=== PATIENT | female | born 1985 | race Caucasian/White ===

== ENCOUNTER 2022-03-29 17:31 | Emergency (ER) | payer MEDICAID, SELFPAY ==
[2022-03-29 17:49] VITALS: BP 135/101; PULSE 78; RESP 14; TEMP 37; O2SAT 99; BMI 34.3
--- NOTE | 2022-03-29 18:03 | XRR_ITS ---
PROCEDURE INFORMATION: Exam: XR Left Wrist Exam date and time: 03/29/2022 6:25 PM Age: 36 years old Clinical indication: Pain; Wrist; Left; Additional info: Fall injury with wrist pain TECHNIQUE: Imaging protocol: Radiologic exam of the Left wrist. Views: 3 or more views. COMPARISON: No relevant prior studies available. FINDINGS: Bones/joints: Normal. Soft tissues: Normal. XR/XR wrist LT min 3V* [id number] IMPRESSION: No acute findings.
--- NOTE | 2022-03-29 18:14 | W.ED.EXTPRO ---
HPI - Extremity Problem General: Chief complaint: Extremity Injury, Upper Stated complaint: left hand injury Time Seen by Provider: 03/29/22 18:03 History of Present Illness: Patient is a 36-year-old female comes to the ED with left hand and wrist injury. Injury occurred just prior to arrival. She was trying to get one of her kids loaded up in her van. When she went to step out of the van she fell landing on left hand and wrist. She now has some pain and swelling around the thenar region of hand. She rates the pain an 8 out of 10. Associated symptoms: Deny chest pain, fever(s) or rash Review of Systems Const: Denies: fever(s), chills or fatigue Eyes: Denies: change in vision or eye discomfort ENMT: Denies: throat pain, odynophagia, nasal discharge or nasal congestion Card: Denies: chest pain, palpitations, edema, swelling of feet/ankles, dyspnea on exertion or orthopnea Resp: Denies: dyspnea, productive cough or non-productive cough GI: Denies: abdominal pain, nausea, vomiting, diarrhea, constipation or hematochezia : Denies: flank pain, dysuria or hematuria Musc: Reports: extremity pain (left wrist); Denies: neck pain, back pain or extremity swelling Skin/Breast: Denies: rash or new lesions Neuro: Denies: headache(s), numbness in extremities or weakness in extremities PFS ED PFSH: Medical History (Updated 03/29/22 @ 22:53 by NIGEL Lofton) No pertinent family history Surgical History (Updated 03/29/22 @ 22:53 by NIGEL Lofton) No pertinent past surgical history Physical Exam Const: COMMON NORMALS: patient oriented x3 HENMT: COMMON NORMALS: normocephalic HEAD & SCALP: normocephalic MOUTH: Normal oral and palatal mucosa present THROAT: posterior oropharynx normal and uvula midline Neck/C-Spine: COMMON NORMALS: supple GENERAL: Yes normal visual inspection Resp: COMMON NORMALS: normal respiratory effort, No retractions, No use of accessory muscles and clear to auscultation bilaterally AUSCULTATION: clear to auscultation bilaterally Cardio: COMMON NORMALS: regular rate, regular rhythm, S1 normal heart sound present, S2 normal heart sound present, No gallops present (Cardio), No clicks present (Cardio), No murmurs present (Cardio) and Peripheral pulses 2+ throughout RATE: regular rate RHYTHM: regular rhythm HEART SOUNDS: S1 normal heart sound present and S2 normal heart sound present PERIPHERAL PULSES: Peripheral pulses 2+ throughout GI: COMMON NORMALS: Normal to inspection, nondistended, normoactive bowel sounds present, Soft to palpation, non-tender and no masses PALPATION: Yes Soft to palpation : COMMON NORMALS: Yes no CVA tenderness BLADDER/KIDNEY EXAM: Yes no CVA tenderness Back/Pelvis: COMMON NORMALS: no CVA tenderness Extremity: NARRATIVE EXTREMITY EXAM: Left hand?ecchymosis and swelling noted around thenar region of hand. Tenderness to palpation of the thenar region of hand. Neurovascular tact distally. Neuro: COMMON NORMALS: patient oriented x3 GAIT: Yes Normal gait present Skin: GENERAL SKIN EXAM: dry skin Course Vital Signs: Vital signs: Vital Signs Temperature 98.6 F 03/29/22 17:49 Pulse Rate 78 03/29/22 17:49 Respiratory Rate 14 03/29/22 17:49 Blood Pressure 135/101 03/29/22 17:49 Pulse Oximetry 99 03/29/22 17:49 Oxygen Delivery Me thod 03/29/22 17:49 MDM - Extremity (Nontraumatic) Medical Decision Making Patient is a 36-year-old female comes to the ED with left hand and wrist injury. Injury occurred just prior to arrival. She was trying to get one of her kids loaded up in her van. When she went to step out of the van she fell landing on left hand and wrist.Left hand?ecchymosis and swelling noted around thenar region of hand. Tenderness to palpation of the thenar region of hand. Neurovascular tact distally. Vital stable. Left wrist x-ray showed no acute findings or fractures. Patient diagnosed with a contusion of left hand and was given a dose of Toradol here in the ED. She was discharged home with a prescription for ibuprofen 800 mg for pain. Return ED precautions given. Follow-up with PCP within the next week for reevaluation. Patient understood and agreed with plan for Lab Data Radiology Impressions Wrist X-Ray 03/29/22 18:03 IMPRESSION: No acute findings. Discharge Plan Discharge Patient Disposition: Home Clinical Impression: Contusion of hand, left Qualifiers: Encounter type: initial encounter Qualified Code(s): S60.222A - Contusion of left hand, initial encounter Condition: Stable Prescriptions: New ibuprofen 800 mg tablet 800 mg PO Q8H PRN (Reason: pain) Qty: 30 0RF Discharge Orders: Discharge ED (Routine); Ordered 03/29/22 Ordered By: Darrel Ryan Discharge Diet: Regular Discharge Activity: Increase activity as tolerated Activity Restrictions/Additional Instructions: Follow-up with medical provider as directed in the next 5-7 days for reevaluation. Take medications as prescribed. Return to the ER or your medical provider if condition worsens. Please read and understand discharge instructions. Thank you for choosing [facility] for your healthcare needs today. Please realize this is an emergency room and that we are providing you with a medical screening exam and this may not be complete and all inclusive of all the testing and or work up that you may need to determine your ailment or severity of your illness. It is very important that you follow up as instructed or that you return to the Emergency Department should you have concerns or if your condition changes or worsens in any way. Coding Level of Care Code ED Journal Clerk for Leonie Werner Exam Comprehensive
[2022-03-29] MEDS: ketorolac 60 mg/2 mL INJ IM (18:52)
== END 2022-03-29 19:20 | disposition home or self-care (01) ==
PROVIDERS: Emergency Provider Physician Assistant
DX: S60.222A Contusion of left hand, initial encounter (principal); W17.89XA Other fall from one level to another, initial encounter
CPT/HCPCS: 73110; 96372; 99284; J1885

== ENCOUNTER → 2023-03-09 14:02 | Outpatient (BNVA) | payer MEDICAID, SELFPAY | PROVIDERS: Visit Provider Family Medicine | DX: G56.03 Carpal tunnel syndrome, bilateral upper limbs (principal); E03.9 Hypothyroidism, unspecified | CPT/HCPCS: 80053; 80061; 84439; 84443; 85025 ==

== ENCOUNTER 2023-05-25 10:20 | Outpatient (CLI) | payer OTHER, MEDICAID, SELFPAY ==
--- NOTE | 2023-05-25 10:29 | XRR_ITS ---
PROCEDURE INFORMATION: Exam: XR Lumbosacral Spine Exam date and time: 05/25/2023 10:35 AM Age: 37 years old Clinical indication: Dorslagia; Patient HX: Dorsalgia; Chronic low back pain; PT states she has had 5 epidurals (labor) and thinks this has somet; Additional info: M54.9 - dorsalgia, unspecified TECHNIQUE: Imaging protocol: Radiologic exam of the lumbosacral spine. Views: 4 or 5 views. COMPARISON: No relevant prior studies available. FINDINGS: Bones/joints: Mild L3-L4 and marked L4-L5 disc space narrowing with eburnation. Mild anterior spurring. No fracture. No lytic or sclerotic bone lesion. The pedicles are intact.. Soft tissues: Unremarkable. XR/XR lumbar spine min 4V [id number] IMPRESSION: No acute findings.
== END 2023-05-25 10:21 | disposition home or self-care (01) ==
LOC: RAD 10:21
PROVIDERS: PCP Family Medicine; Visit Provider Anesthesiology Pain Medicine
DX: M54.50 Low back pain, unspecified (principal); G89.29 Other chronic pain
CPT/HCPCS: 72110

== ENCOUNTER → 2023-06-01 12:01 | Outpatient (BNVA) | payer MEDICAID, SELFPAY | PROVIDERS: PCP Family Medicine; Visit Provider Family Medicine | DX: E03.9 Hypothyroidism, unspecified (principal) | CPT/HCPCS: 80048; 84439; 84443 ==

== ENCOUNTER → 2023-07-17 13:28 | Outpatient (BNVA) | payer MEDICAID, SELFPAY | PROVIDERS: PCP Family Medicine; Visit Provider Student in an Organized Health Care Education/Training Program | DX: G56.03 Carpal tunnel syndrome, bilateral upper limbs (principal) | CPT/HCPCS: 73130 ==

== ENCOUNTER 2023-10-10 05:46 | Day surgery (SDC) | payer MEDICAID, SELFPAY ==
[2023-10-10] VITALS (8 sets, daily range): BP systolic 119–162; BP diastolic 79–117; PULSE 64–87; RESP 16–20; TEMP 36.1–36.4; O2SAT 94–98; BMI 29.7
[2023-10-10 06:17] LABS: OR HCG Qualitative Urine Negative (Negative)
[2023-10-10] MEDS: scopolamine 1.5 Patch 1 PATCH TRANSDERMA (06:29)
[2023-10-10] MEDS: acetaminophen 1,000 MG/100 ML PIGGYBACK 400 MG IV (06:33)
[2023-10-10] MEDS: ketorolac 30 mg/mL INJ IVP (06:34)
[2023-10-10] MEDS: sodium chloride 0.9% 1,000 ML 30 ML IV (06:35)
--- NOTE | 2023-10-10 06:40 | ANES.PREANE2 ---
Pre-Anesthetic Assessment Height/Weight: Height 1.63 m Weight 78.471 kg Temp Pulse Resp BP Pulse Ox O2 Del Method 97.3 F L 87 16 159/117 98 Room Air 10/10/23 06:08 10/10/23 06:08 10/10/23 06:08 10/10/23 06:08 10/10/23 06:08 10/10/23 06:08 Operation Date: 10/10/23 07:00 Proposed Procedures p Carpal Tunnel Release(Left) - Azeem Ryan DO Familial anesthetic complications: None Was Beta Kinza taken within 24 hours: N/A Was Clonidine taken within 24 hours: N/A Last intake: Intake Last Liquid Date 10/09/23 Last Liquid Time 23:30 Last Solid Date 10/09/23 Last Solid Time 21:00 Social Tobacco and No alcohol Exam alert, oriented x 3, clear to auscultation bilaterally and regular rate & rhythm Airway Mallampati: Class II Dentition: other (missing) Chronic Renal Insufficiency (dehydration) Metabolic Thyroid Disease Anesthetic Plan ASA status: 2 Anesthesia: MAC Risk of > 500 ml blood loss (7ml/kg in children): No Medications/Allergies Home Medications Medication Instructions Recorded Confirmed Last Taken Type levothyroxine 200 mcg tablet 250 mcg PO DAILY 10/09/23 10/10/23 10/10/23 History (Synthroid) Allergies Allergy/AdvReac Type Severity Reaction Status Date / Time No Known Allergies Allergy Verified 10/10/23 06:39 Current Medications Generic Name Dose Route Start Last Admin Trade Name Freq PRN Reason Stop Dose Admin Sodium Chloride 1,000 mls @ 30 mls/hr 10/10/23 06:00 10/10/23 06:35 Sodium Chloride 0.9% IV 10/11/23 05:59 30 mls/hr .Q24H GERARDO Administration PFSH Anesthesia Medical History Moderate major depression Hypothyroidism No pertinent family history Surgical History No pertinent past surgical history Family History Mother Diabetes Stroke Father Hypertension Social History Smoking and tobacco/nicotine status: current every day tobacco/nicotine user cigarettes Packs smoked per day: 1 Quit status (tobacco/nicotine): considering quitting Second hand smoke exposure: Yes Alcohol intake: never Substance/Drug Use: never Data Anesthesia Cardiac Studies: No Data to Display
--- NOTE | 2023-10-10 06:48 | W.PM.OPSFHP ---
Same Day Surgery H&P Indication for Procedure/HPI DATE OF PROCEDURE: October 10, 2023 CHIEF COMPLAINT/INDICATIONFOR SURGICAL PROCEDURE: Left carpal tunnel syndrome PREOP DIAGNOSIS: Left carpal tunnel syndrome PLANNED PROCEDURE: Operation Date: 10/10/23 07:00 Proposed Procedures p Carpal Tunnel Release(Left) - Azeem Ryan DO Medications/Allergies* Home Medications Medication Instructions Recorded Confirmed Type levothyroxine 200 mcg tablet 250 mcg PO DAILY 10/09/23 10/10/23 History (Synthroid) Allergies/Adverse Reactions Allergy/AdvReac Type Severity Reaction Status Date / Time No Known Allergies Allergy Verified 10/10/23 06:39 Current Medications: Generic Name Dose Route Start Last Admin Trade Name Freq PRN Reason Stop Dose Admin Sodium Chloride 1,000 mls @ 30 mls/hr 10/10/23 06:00 10/10/23 06:35 Sodium Chloride 0.9% IV 10/11/23 05:59 30 mls/hr .Q24H GERARDO Administration Pertinent History/Comorbid Conditions* Medical History (Updated 06/01/23 @ 12:04 by Eric Melton MD) Moderate major depression Hypothyroidism No pertinent family history Surgical History (Updated 03/29/22 @ 22:53 by NIGEL Lofton) No pertinent past surgical history Family History (Updated 03/09/23 @ 13:22 by Freda Martell) Diabetes Mother Hypertension Father Stroke Mother Social History Smoking and tobacco/nicotine status: current every day tobacco/nicotine user cigarettes Packs smoked per day: 1 Quit status (tobacco/nicotine): considering quitting Second hand smoke exposure: Yes Alcohol intake: never Substance/Drug Use: never Pertinent Exam Findings alert, oriented x 3, operative site marked and procedure specific exam findings Please refer to previous office note on 09/04/2023 for detailed orthopedic examination. Bilateral upper extremity exam normal C-spine ROM No pain. Negative Spurlings Negative Tinel's@ shoulder. Normal ROM Normal ROM elbow. Negative Tinel's@ elbow Right, positive on the left Wrist: Positive median compression test. Bilaterally Positive Tinel's on left Positive Tinel's on right. Positive Phalens bilaterally. Mild thenar weakness bilaterally. No atrophy noted. No Intrinsic atrophy noted bilaterally. No CMC TTP Bilaterally. Negative Grind test. Recommendations Surgery/Procedure today Other Plans: Plan to proceed with the OR today for left carpal tunnel release.. Patient understands incidence procedure risk benefits complication alternatives of surgery and tissue excision being less proceed with surgical intervention today all questions answered. Coding Level of Care Code Acute Code for Chg Fwd
[2023-10-10] MEDS: ceFAZolin 2,000 MG in sodium chloride 0.9% (plus) 50 ML 100 MG IV (06:58)
[2023-10-10] MEDS: ROPivacaine 0.5% SDV 30 mL 150 MG INJECTION (07:11)
[2023-10-10] MEDS: lidocaine-epi 1% PF 1:200,000 30 mL SDV INJECTION (07:11)
--- NOTE | 2023-10-10 07:37 | P.BOP_ITS ---
Date of Procedure: 10/10/2023 Surgeon: Azeem Ryan DO Bar Finish Operator(s): Darrel Ryan PA-C Procedure(s) performed: Left carpal tunnel release Findings of the procedure(s): Patient found to have left carpal tunnel syndrome underwent procedure as planned without issues or complications Estimated blood loss: 2 mL Specimen(s) removed: None Post-operative diagnosis: Left carpal tunnel syndrome
--- NOTE | 2023-10-10 07:41 | P.OP_ITS ---
Operative Report Date of procedure: October 10, 2023 Surgeon: Azeem Ryan DO User Experience Manager: Darrel Ryan PA-C: PA was necessary for assistance in this case with hand positioning to execute the procedure, retraction and protection of neurovascular structures as well as to assist with wound closure and dressing application. Procedure: Preoperative diagnosis: Left carpal tunnel syndrome post-op diagnosis: Same Procedure done: 1.?Left carpal tunnel release Surgeon: Azeem Ryan DO Anesthesia: MAC (Local) Estimated blood?loss: 2 mL Tourniquet time 5 minutes IV fluids: See anesthesia record Complications: None Findings: See operative report narrative Condition: stable Disposition: same day Brief History: Patient is a pleasant 38 year-old female?with?left carpal tunnel syndrome.? Patient has been worked up in the outpatient setting findings and physical examination consistent with this.? Patient nerve?conduction studies consistent with carpal tunnel syndrome.? We detailed?out?patient's risk benefits complication alternatives with surgical and?nonsurgical treatment options. Through shared decision making, patient?agrees to proceed with surgical intervention of the?left carpal tunnel release .? Patient understands and agrees with current plan.? All questions answered.? Patient elects to proceed with surgical intervention with carpal tunnel release. Procedure: Patient seen and evaluated in the preoperative holding area.? Consent was reviewed and signed with patient.? Correct extremity was marked.? Patient was seen evaluated by the anesthesia department once cleared for surgery was brought back to the operative suite.? Patient was kept on [facility] in supine position all bony prominences were well-padded patient properly secured to the bed.??Left upper extremity was then placed onto an armboard.? A nonsterile tourniquet was applied to the?left upper arm.? Patient underwent anesthesia per the anesthesia department.? Patient's?left upper extremity was then prepped and draped in standard orthopedic fashion.? Final timeout performed.? Patient received appropriate preoperative antibiotics. Under sterile aseptic technique patient received?local anesthesia over the preplanned carpal tunnel incision site. Esmarch was used to exsanguinate the?left upper extremity and tourniquet was insufflated to 250 mmHg. A standard mini open?left carpal tunnel incision was made.? Starting distally at Chi's cardinal?line in?line with the fourth ray extending proximally distal to the wrist crease centered over the carpal tunnel.? Sharp scalpel incision was made through skin and subcutaneous tissue.? Self-retaining retractor was placed and the palmar fascia was identified.? This was then split?longitudinally and direct visualization of the transverse carpal?ligament was then made.? I then utilizing scalpel feathered through the transverse carpal?ligament until I entered the floor of the transverse carpal tunnel?ligament into the carpal tunnel.? Next I switched to dissection scissors and completed my release of the transverse carpal?ligament distally with care to protect the recurrent motor branch.? I completely released into the palmar fat and until no entrapment was noted distally.? Care was made to protect the superficial palmar arch during my distal dissection.? Next I placed a nasal speculum proximally to protect soft tissues on top of the transverse carpal ligament. Next I then placed a [place] underneath the transverse carpal tunnel?ligament to protect the contents of the carpal tunnel and subsequently utilizing dissection scissors under?loupe magnification completely released the transverse carpal?ligament proximally into the median antebrachial fascia.? Care was made to protect the palmar cutaneous branch by keeping my scissors curved ulnarly.? Once completely released, I then placed my [place] and had appropriate decompression of the carpal tunnel proximally as well as distally.? I then inspected the contents of the carpal tunnel which showed an hourglass shape of the median nerve showing its compression.? No masses were noted.? Tendons appeared healthy.? Wound was then thoroughly irrigated.? Tourniquet deflated.? Hemostasis satisfactory with bipolar electrocautery.? I then closed the incision with interrupted nylon stitches.? Xeroform 4 x 4's and a bulky soft dressing was applied to the?left upper extremity.? Patient was then awakened from anesthesia and taken to PACU in stable condition.? Patient tolerated procedure without complications. Disposition: Patient taken to PACU in stable condition recovering well.? Dressing clean dry and intact.? Patient will receive appropriate discharge instructions as well as pain medication postoperatively.? Patient to follow-up with me in the office in 2 weeks.? They understand they may be weightbearing as tolerated to the?left hand.? Patient should keep incision clean dry and intact.? Patient understands if any questions or concerns may contact the office.
--- NOTE | 2023-10-10 07:54 | PM.PACU ---
PACU note Narrative: Patient is a 38-year-old female that just underwent a left carpal tunnel release. Patient transferred to PACU in stable condition. Pain is well controlled. Dressing on hand is dry and in place. Patient's fingers are warm and well-perfused. Patient can wiggle fingers. normal cap refill under 2 seconds. Patient has normal elbow range of motion. sensation to hand intact. Exam: awake Disposition: discharged
--- NOTE | 2023-10-10 08:30 | ANE.PACU2 ---
Inpatient post-anesthesia follow up: Airway intact: Yes Vital signs: Temperature 97.6 F Pulse Rate 66 Respiratory Rate 16 Blood Pressure 154/89 Pulse Oximetry 95 Oxygen Delivery Me thod Room Air Oxygen Flow Rate Fraction of Inspir ed Oxygen Hydration adequate: Yes Nausea and vomiting: No Pain level: 1 Mental status: Baseline
== END 2023-10-10 08:31 | disposition home or self-care (01) ==
PROVIDERS: PCP Family Medicine; Visit Provider Student in an Organized Health Care Education/Training Program
PROC: (CPT 64721; principal; 2023-10-10 07:00)
DX: G56.02 Carpal tunnel syndrome, left upper limb (principal); E03.9 Hypothyroidism, unspecified; F17.210 Nicotine dependence, cigarettes, uncomplicated
CPT/HCPCS: 64721; 81025; J0131; J0690; J1885; J2250; J2704; J2795; J3010; J7030

== ENCOUNTER → 2023-11-12 14:59 | Outpatient (BNVA) | payer MEDICAID, SELFPAY | PROVIDERS: PCP Family Medicine; Visit Provider Family Medicine | DX: E03.9 Hypothyroidism, unspecified (principal) | CPT/HCPCS: 80053; 84439; 84443 ==

== ENCOUNTER → 2023-12-18 11:27 | Outpatient (BNVA) | payer MEDICAID, SELFPAY | PROVIDERS: PCP Family Medicine; Visit Provider Family Medicine | DX: E03.9 Hypothyroidism, unspecified (principal) | CPT/HCPCS: 80053; 82672; 83001; 83002; 84144 ==

== ENCOUNTER → 2024-01-29 14:09 | Outpatient (BNVA) | payer MEDICAID, SELFPAY | PROVIDERS: PCP Family Medicine; Visit Provider Family Medicine | DX: E03.9 Hypothyroidism, unspecified (principal) | CPT/HCPCS: 84439; 84443 ==

== ENCOUNTER 2024-03-12 08:13 | Outpatient (CLI) | payer MEDICAID, SELFPAY ==
[2024-03-12 09:44] LABS: Cortisol Random 22.99 ug/dL (2.47-19.5)
== END 2024-03-12 08:14 | disposition home or self-care (01) ==
LOC: LAB 08:13
PROVIDERS: PCP Family Medicine; Visit Provider Internal Medicine
DX: E03.9 Hypothyroidism, unspecified (principal)
CPT/HCPCS: 36415; 82533; 83516; 86376; 86800

== ENCOUNTER 2024-03-12 15:13 | Outpatient (CLI) | payer MEDICAID, SELFPAY ==
--- NOTE | 2024-03-12 15:15 | USR_ITS ---
PROCEDURE INFORMATION: Exam: US Soft Tissue Head and Neck, Thyroid Exam date and time: 03/12/2024 3:20 PM Age: 38 years old Clinical indication: Condition or disease; Other: Hypothyroidism; Additional info: Hypothyroidism, Dr. Graham is requesting to look at lymph nodes as well and TECHNIQUE: Imaging protocol: Real-time ultrasound scan of the neck with image documentation. Exam focused on the thyroid. COMPARISON: No relevant prior studies available. FINDINGS: Right thyroid lobe: The right thyroid lobe measures 4.9 x 1.4 x 1.5 cm and demonstrates a diffuse atrophic, heterogeneous pattern. No nodule noted. Left thyroid lobe: The left thyroid lobe measures 3.8 x 1.1 x 1.3 cm and demonstrates a diffuse atrophic, heterogeneous pattern. No nodule noted. Isthmus: No nodules. Lymph nodes: A few mildly prominent left submandibular lymph nodes are noted measuring up to 8 mm in diameter. US/US thyroid [id number] IMPRESSION: 1. Atrophic, heterogeneous thyroid gland consistent with chronic thyroiditis 2. Reactive adenopathy on the left
== END 2024-03-12 15:14 | disposition home or self-care (01) ==
LOC: RAD 15:13
PROVIDERS: PCP Family Medicine; Visit Provider Internal Medicine
DX: E03.9 Hypothyroidism, unspecified (principal); R59.0 Localized enlarged lymph nodes
CPT/HCPCS: 76536

== ENCOUNTER 2024-04-10 08:34 | Day surgery (SDC) | payer MEDICAID, SELFPAY ==
[2024-04-10] VITALS (9 sets, daily range): BP systolic 130–168; BP diastolic 74–100; PULSE 59–69; RESP 16–17; TEMP 36.1–36.6; O2SAT 90–100; BMI 26.6
--- NOTE | 2024-04-10 09:05 | W.PM.OPSFHP ---
Same Day Surgery H&P Indication for Procedure/HPI DATE OF PROCEDURE: April 10, 2024 CHIEF COMPLAINT/INDICATIONFOR SURGICAL PROCEDURE: Right carpal tunnel syndrome right cubital tunnel syndrome, left hand retained deep stitch/suture PREOP DIAGNOSIS: Right carpal tunnel syndrome right cubital tunnel syndrome, left hand retai PLANNED PROCEDURE: Operation Date: 04/10/24 10:50 Proposed Procedures p Carpal Tunnel Release(Right) - Azeem Shelby, DO s Cubital Tunnel Release(Right) - Azeem Shelby, DO s Ulnar Nerve Transposition(Right) - Azeem Shelby, DO Medications/Allergies* Allergies/Adverse Reactions Allergy/AdvReac Type Severity Reaction Status Date / Time No Known Allergies Allergy Verified 04/10/24 09:03 Pertinent History/Comorbid Conditions* Medical History (Updated 03/03/24 @ 10:37 by Andrey Graham MD) Moderate major depression Hypothyroidism No pertinent family history Surgical History (Updated 10/25/23 @ 15:44 by NIGEL Lofton) No pertinent past surgical history Family History (Updated 03/09/23 @ 13:22 by Freda Martell) Diabetes Mother Hypertension Father Stroke Mother Social History Smoking and tobacco/nicotine status: never used tobacco/nicotine Quit status (tobacco/nicotine): considering quitting Second hand smoke exposure: Yes Alcohol intake: never Substance/Drug Use: never Pertinent Exam Findings alert, oriented x 3, operative site marked and procedure specific exam findings Examination today positive Tinel's at the carpal tunnel and cubital tunnel as well as the left hand does have a retained deep nylon stitch that is evident. Please refer to the rest of the detailed examination done on 02/26/2024 listed below: Right Hand exam-positive Tinel's and positive Phalen's test. No thenar atrophy and no thenar muscle weakness. Full range of motion in fingers and wrist and fingers are warm and well-perfused with normal cap refill under 2 seconds. Radial pulse 2+, intrinsic muscle weakness noted. Right Elbow exam-positive Tinel's test Recommendations Surgery/Procedure today Other Plans: Plan to proceed to the OR today for a right carpal tunnel release, right cubital tunnel release with possible ulnar nerve transposition, As well as left hand deep stitch removal. Patient unfortunately has a residual stitch in the palm of the hand and she would like to have this removed as this is clearly evidence of a subcutaneous area and tender to palpation and she like to have this done while she is under anesthesia. Will go ahead and add this onto her consents today. She understands the ins and outs procedure the risk benefits complication alternatives surgery and through shared decision-making elects proceed with surgical intervention. All questions answered at this time. Coding Level of Care Code Acute Code for Chg Fwd
[2024-04-10] MEDS: sodium chloride 0.9% 1,000 ML 30 ML IV (09:15)
[2024-04-10] MEDS: ketorolac 30 mg/mL INJ IVP (09:16)
[2024-04-10] MEDS: acetaminophen 1,000 MG/100 ML PIGGYBACK 400 MG IV (09:19)
[2024-04-10] MEDS: scopolamine 1.5 Patch 1 PATCH TRANSDERMA (09:26)
--- NOTE | 2024-04-10 09:37 | P.ANESASSM_ITS ---
Pre-Anesthetic Assessment Height/Weight: Height 1.63 m Weight 70.307 kg Temp Pulse Resp BP Pulse Ox O2 Del Method 97.5 F L 69 16 147/87 100 Room Air 04/10/24 08:58 04/10/24 08:58 04/10/24 08:58 04/10/24 08:58 04/10/24 08:58 04/10/24 08:58 Preop Diagnosis: Right carpal tunnel syndrome right cubital tunnel syndrome, left hand retai Operation Date: 04/10/24 10:50 Proposed Procedures p Carpal Tunnel Release(Right) - Azeem Shelby, DO s Cubital Tunnel Release(Right) - Azeem Shelby, DO s Ulnar Nerve Transposition(Right) - Azeem [place], DO Familial anesthetic complications: None Was Beta Kinza taken within 24 hours: N/A Was Clonidine taken within 24 hours: N/A Last intake: Intake Last Liquid Date 04/09/24 Last Liquid Time 22:00 Last Solid Date 04/09/24 Last Solid Time 22:00 Social Tobacco and No alcohol Exam alert, oriented x 3, clear to auscultation bilaterally and regular rate & rhythm Airway Mallampati: Class II Dentition: full Metabolic Thyroid Disease Anesthetic Plan ASA status: 2 Anesthesia: General and Regional (specify below) Risk of > 500 ml blood loss (7ml/kg in children): No Medications/Allergies Home Medications Medication Instructions Recorded Confirmed Last Taken Type levothyroxine 200 mcg tablet 200 mcg PO DAILY #90 tabs 01/30/24 04/10/24 04/10/24 Rx levothyroxine 75 mcg tablet 75 mcg PO DAILY #30 tabs 03/10/24 04/10/24 04/10/24 Rx hydrocodone 5 mg-acetaminophen 325 1 tab PO Q6H PRN pain 7 days #28 04/10/24 Unknown Rx mg tablet tabs Allergies Allergy/AdvReac Type Severity Reaction Status Date / Time No Known Allergies Allergy Verified 04/10/24 09:03 Current Medications Generic Name Dose Route Start Last Admin Trade Name Freq PRN Reason Stop Dose Admin Sodium Chloride 1,000 mls @ 30 mls/hr 04/10/24 08:45 04/10/24 09:15 Sodium Chloride 0.9% IV 04/11/24 08:44 30 mls/hr .Q24H GERARDO Administration PFSH Anesthesia Medical History Moderate major depression Hypothyroidism No pertinent family history Surgical History No pertinent past surgical history Family History Mother Diabetes Stroke Father Hypertension Social History Smoking and tobacco/nicotine status: never used tobacco/nicotine Quit status (tobacco/nicotine): considering quitting Second hand smoke exposure: Yes Alcohol intake: never Substance/Drug Use: never Female Reproductive History Date of last menstrual period: 03/10/24 Data Anesthesia Cardiac Studies: No Data to Display
--- NOTE | 2024-04-10 10:01 | P.ANESASSM_ITS ---
Pre-Anesthetic Assessment Height/Weight: Height 1.63 m Weight 70.307 kg Temp Pulse Resp BP Pulse Ox O2 Del Method 97.5 F L 69 16 147/87 100 Room Air 04/10/24 08:58 04/10/24 08:58 04/10/24 08:58 04/10/24 08:58 04/10/24 08:58 04/10/24 08:58 Preop Diagnosis: Right carpal tunnel syndrome right cubital tunnel syndrome, left hand retai Operation Date: 04/10/24 10:50 Proposed Procedures p Carpal Tunnel Release(Right) - Azeem Shelby, DO s Cubital Tunnel Release(Right) - Azeem Shelby, DO s Ulnar Nerve Transposition(Right) - Azeem [place], DO Familial anesthetic complications: None Was Beta Kinza taken within 24 hours: N/A Was Clonidine taken within 24 hours: N/A Last intake: Intake Last Liquid Date 04/09/24 Last Liquid Time 22:00 Last Solid Date 04/09/24 Last Solid Time 22:00 Social No alcohol and No tobacco Exam alert, oriented x 3, clear to auscultation bilaterally and regular rate & rhythm Airway Mallampati: Class I Dentition: full Metabolic Thyroid Disease Anesthetic Plan ASA status: 2 Anesthesia: General and Regional (specify below) Risk of > 500 ml blood loss (7ml/kg in children): No Medications/Allergies Home Medications Medication Instructions Recorded Confirmed Last Taken Type levothyroxine 200 mcg tablet 200 mcg PO DAILY #90 tabs 01/30/24 04/10/24 04/10/24 Rx levothyroxine 75 mcg tablet 75 mcg PO DAILY #30 tabs 03/10/24 04/10/24 04/10/24 Rx hydrocodone 5 mg-acetaminophen 325 1 tab PO Q6H PRN pain 7 days #28 04/10/24 Unknown Rx mg tablet tabs Allergies Allergy/AdvReac Type Severity Reaction Status Date / Time No Known Allergies Allergy Verified 04/10/24 09:03 Current Medications Generic Name Dose Route Start Last Admin Trade Name Freq PRN Reason Stop Dose Admin Sodium Chloride 1,000 mls @ 30 mls/hr 04/10/24 08:45 04/10/24 09:15 Sodium Chloride 0.9% IV 04/11/24 08:44 30 mls/hr .Q24H GERARDO Administration PFSH Anesthesia Medical History Moderate major depression Hypothyroidism No pertinent family history Surgical History No pertinent past surgical history Family History Mother Diabetes Stroke Father Hypertension Social History Smoking and tobacco/nicotine status: never used tobacco/nicotine Quit status (tobacco/nicotine): considering quitting Second hand smoke exposure: Yes Alcohol intake: never Substance/Drug Use: never Female Reproductive History Date of last menstrual period: 03/10/24 Data Anesthesia Cardiac Studies: No Data to Display
--- NOTE | 2024-04-10 10:01 | ANES.PROC ---
Anesthesia Procedures Procedure/Date: 04/10/24 Nerve Block ^: Nerve Block 1: Main Anesthesia: general anesthesia Time Out Performed: Yes Consent: requested by attending/covering physician, from patient, from other, risks and benefits reviewed and patient agrees to proceed Nerve block location: supraclavicular (R) Anesthesia monitors applied: pulse oximetry, EKG and BP cuff Nerve block position: semi sitting Anesthetic Used: ropivicaine 0.5% (30 ml) and with decadron (4 mg) Ultrasound used to: recognize landmarks, visualize and ID brachial plexus, in supraclavicular region and visualize and ID interscalene groove Nerve Stimulator Used?: No Interscalene/Femoral BLK: 4 stimuplex 21 g needle used for position and inplane approach, visualize local anesthetic spread and no vascular puncture identified Injection: neg aspiration of heme Complications: none
[2024-04-10] MEDS: ceFAZolin 2,000 MG in sodium chloride 0.9% (plus) 50 ML 100 MG IV (10:15)
--- NOTE | 2024-04-10 11:07 | W.PM.BPON ---
Date of Procedure: 04/10/2024 Surgeon: Azeem Ryan DO [employer] Installer(s): None Procedure(s) performed: Right carpal tunnel release Right cubital tunnel release (ulnar nerve decompression at the elbow) Left hand deep stitch removal Findings of the procedure(s): Patient was found to have severe right carpal tunnel right cubital tunnel syndrome underwent procedure as planned without issues or complications. Patient was found to have a retained deep stitch from the left hand at the carpal tunnel previous incision site is all well-healed no signs of infection I subsequently remove this deep stitch without issues or complications was placed with a dry dressing to the bilateral extremities. Patient tolerated procedure well without issues or complications taken PACU in stable condition Estimated blood loss: 5 Specimen(s) removed: None Post-operative diagnosis: Right carpal tunnel syndrome, right cubital tunnel syndrome, left hand retained deep stitch/suture
--- NOTE | 2024-04-10 11:08 | P.OP_ITS ---
Operative Report Date of procedure: April 10, 2024 Surgeon: Azeem Ryan DO Procedure: Preoperative diagnosis: Right carpal tunnel syndrome, right cubital tunnel syndrome, left hand retained deep suture/stitch postop Diagnosis: Same Procedure done: Right carpal tunnel release Right?cubital tunnel tunnel release (ulnar nerve decompression at elbow) Left hand deep stitch removal Surgeon: Azeem Ryan DO Estimated blood loss: 5 mL Tourniquet? 15 minutes IV fluids: 600 mL Complications: None Findings: See operative report narrative Condition: stable Disposition: same day Brief History: Patient's been seen and worked up in the outpatient setting and findings consistent with preoperative diagnosis.? Patient has right carpal tunnel syndrome as well as right?cubital tunnel syndrome which has been worked up in the outpatient setting has physical exam findings consistent with this as well as confirmatory nerve conduction/EMG nerve conduction study consistent with diagnosis.? Patient's failed conservative treatment.? As result through shared decision making agreed to proceed with? right carpal tunnel and right?cubital tunnel release with possible ulnar nerve transposition. Also she has a retained suture to the left hand we added this onto the consent and will have the stitch removed while she is under anesthesia. We talked about treatment options as far as nonoperative and operative intervention.? Understands risk benefits complication alternatives surgical nonsurgical treatment options.? Understanding risks pt agrees to proceed with surgical intervention. Understanding these risks patient agrees to proceed with surgery.? Consent obtained in office. Procedure: Patient seen evaluate in the preoperative holding area.? Consent was reviewed and signed with patient.? Correct extremity marked.? Patient seen evaluated by anesthesia department once cleared for surgery was then taken back to the operative suite placed in supine position all bony prominences well-padded patient properly secured to bed.? right upper extremity placed onto armboard.? Nonsterile tourniquet applied right upper arm.? Patient then underwent anesthesia per the anesthesia department.? Patient's right upper extremity was then prepped and draped in standard orthopedic fashion.? Final timeout performed.? Patient received appropriate preoperative antibiotics. Esmarch was used exsanguinate the right upper extremity.? Tourniquet was insufflated to 250 mmHg. I started with the carpal tunnel release first.? I made a standard open carpal tunnel release starting with the distal most extent in the palm at the Chi's cardinal line and the incision line was made in line with the fourth ray and ended just distal to the wrist crease.? Sharp scalpel incision was made through skin and subcutaneous tissue I then utilizing self retainer then began to dissect with dissection scissors split longitudinally the palmar fascia.? Next I then utilizing my endodontic assistant Jamir retractors subsequently utilizing scalpel feathered through the palmaris brevis as well as through the transverse carpal ligament distally.? Once I encountered the floor of the transverse carpal li gament and entered into the carpal tunnel I then switched to dissection scissors.? Carefully released the distal extent of the transverse carpal ligament to the palmar fat.? Care was to protect the recurrent branch and not injured this during this part of the case.? Next I then placed a [place] underneath the transverse carpal ligament proximally to protect the nerve in the carpal tunnel contents.? And then I subsequently under loupe magnification utilize my dissection scissors to release the transverse carpal ligament into the antebrachial fascia under direct visualization with care to keep my scissors with a curved ulnarly away from the palmar cutaneous branch.? The transverse carpal was then completely decompressed proximally and a [place] was then placed both distally and proximally throughout the carpal tunnel and had complete decompression of the nerve.? The nerve did appear to have hourglass shape as it went through the carpal tunnel.? With significant irritation noted around the ne rve.? No masses were noted within the contents of the carpal tunnel.? This completed the carpal tunnel release and then I subsequently irrigated the wound bed and placed a wet Ray-Jennifer into the incision for later closure. Next marked out the landmarks of the right elbow of the medial epicondyle and olecranon and made a curvilinear incision following the course of the ulnar nerve at the medial aspect of the elbow.? Sharp scalpel incision was made through skin and subcutaneous tissue.? Next I switched to Littler dissection scissors and spread in plane of the medial antebrachial cutaneous nerve branching which was protected throughout this part of the dissection.? Then I directly came down over the fascia and identified the 2 heads of the FCU fascia and split this right in the middle and subsequently identified my ulnar nerve distally.? This was then completely released distally under direct visualization and loupe magnification.? Once the nerve was then identified I then subsequently tracked this proximally and released this through Carias's ligament as well as complete decompression of the nerve proximally all the way past the intermuscular septum.? The nerve was completely released and decompressed both proximally and distally.? Ulnar nerve neurolysis performed and completed both proximally and distally with dissection scissors.? I then took the elbow through range of motion and there was no instability or subluxating of the ulnar nerve.? This completed?cubital tunnel release.? ?Next the wound bed was thoroughly irrigated.? Tourniquet was deflated.? Hemostasis was satisfactory at the?cubital tunnel release surgery site. I then inspected the carpal tunnel incision and this was found to have satisfactory hemostasis and all this was maintained through bipolar electrocautery.? At this point time I sequentially closed?cubital tunnel site with 3-0 Vicryl suture in a running horizontal mattress nylon stitch.? ? The carpal tunnel release surgery was then closed in standard interrupted mattress fashion.? Dressing was Xeroform 4 x 4's ABD Curlex soft roll and an Yvan wrap has a bulky soft dressing. Next under sterile technique had the left upper extremity was prepped in standard orthopedic fashion. I then subsequently utilized pickups to de- epithelialized the area where a retained suture is at the left carpal tunnel incision site. We then had utilized an 11 blade to get a release as well as a small skin hook/dental pick to retrieve the suture deep and then subsequently this was removed atraumatically. The suture was nylon suture that was removed to its entirety no evidence of retained suture was noted patient tolerated this well without issues or complications this was then irrigated cleaned and then placed with a OpSite dressing patient was then awakened from anesthesia and taken to PACU in stable condition. Disposition: Patient taken to PACU in stable condition recovering well.? Patient will receive appropriate discharge instructions as well as pain medication postoperatively.? We will follow-up with me in the office in 2 weeks.? Patient understands agrees with current plan.? All questions answered.? He understands if any questions or concerns and contact the office for follow-up appointment..
--- NOTE | 2024-04-10 12:10 | ANE.PACU2 ---
Inpatient post-anesthesia follow up: Airway intact: Yes Vital signs: Temperature 97.8 F Pulse Rate 62 Respiratory Rate 16 Blood Pressure 142/100 Pulse Oximetry 98 Oxygen Delivery Me thod Room Air Oxygen Flow Rate 6 Fraction of Inspir ed Oxygen Hydration adequate: Yes Nausea and vomiting: No Pain level: 1 Mental status: Baseline
== END 2024-04-10 12:10 | disposition home or self-care (01) ==
PROVIDERS: PCP Family Medicine; Visit Provider Student in an Organized Health Care Education/Training Program
PROC: (CPT 64721; principal; 2024-04-10 10:40)
PROC: (CPT 64718; 2024-04-10 10:40)
PROC: (CPT 64718; 2024-04-10 10:40)
DX: G56.01 Carpal tunnel syndrome, right upper limb (principal); G56.21 Lesion of ulnar nerve, right upper limb; E03.9 Hypothyroidism, unspecified
CPT/HCPCS: 64718; 64721; J0131; J0690; J1100; J1885; J2250; J2704; J2795; J3010; J7030

== ENCOUNTER → 2024-05-19 13:02 | Outpatient (BNVA) | payer MEDICAID, SELFPAY | PROVIDERS: PCP Family Medicine; Visit Provider Internal Medicine | DX: E07.9 Disorder of thyroid, unspecified (principal); E03.9 Hypothyroidism, unspecified; E55.9 Vitamin D deficiency, unspecified | CPT/HCPCS: 36415; 82306; 84439; 84443 ==

== ENCOUNTER 2024-07-21 13:37 | Outpatient (CLI) | payer MEDICAID, SELFPAY ==
[2024-07-21 14:43] LABS: Free T4 Free Thyroxine 1.33 ng/dL (0.82-1.77)
== END 2024-07-21 13:38 | disposition home or self-care (01) ==
LOC: LAB 13:41
PROVIDERS: PCP Family Medicine; Visit Provider Internal Medicine
DX: E07.9 Disorder of thyroid, unspecified (principal); E03.9 Hypothyroidism, unspecified; E55.9 Vitamin D deficiency, unspecified
CPT/HCPCS: 36415; 84439; 84443

== ENCOUNTER → 2024-09-16 09:33 | Outpatient (BNVA) | payer MEDICAID, SELFPAY | PROVIDERS: PCP Family Medicine; Visit Provider Internal Medicine | DX: R53.83 Other fatigue (principal); R63.4 Abnormal weight loss; R11.0 Nausea; E03.9 Hypothyroidism, unspecified; E55.9 Vitamin D deficiency, unspecified | CPT/HCPCS: 36415; 82306; 84439; 84443 ==

== ENCOUNTER → 2024-12-21 13:04 | Outpatient (BNVA) | payer MEDICAID, SELFPAY | PROVIDERS: PCP Family Medicine; Visit Provider Emergency Medicine | DX: S92.512A Displaced fracture of proximal phalanx of left lesser toe(s), initial encounter for closed fracture (principal); S92.515A Nondisplaced fracture of proximal phalanx of left lesser toe(s), initial encounter for closed fracture; M19.072 Primary osteoarthritis, left ankle and foot; M77.32 Calcaneal spur, left foot | CPT/HCPCS: 73630 ==

== ENCOUNTER → 2024-12-24 09:37 | Outpatient (BNVA) | payer MEDICAID, SELFPAY | PROVIDERS: PCP Family Medicine; Visit Provider Podiatrist Foot & Ankle Surgery | DX: E03.9 Hypothyroidism, unspecified (principal) | CPT/HCPCS: 36415; 84439; 84443 ==

== ENCOUNTER → 2025-01-07 14:39 | Outpatient (BNVA) | payer MEDICAID, SELFPAY | PROVIDERS: PCP Family Medicine; Visit Provider Podiatrist Foot & Ankle Surgery | DX: S92.502A Displaced unspecified fracture of left lesser toe(s), initial encounter for closed fracture (principal); S92.355A Nondisplaced fracture of fifth metatarsal bone, left foot, initial encounter for closed fracture; S99.192A Other physeal fracture of left metatarsal, initial encounter for closed fracture; S99.922A Unspecified injury of left foot, initial encounter; M19.172 Post-traumatic osteoarthritis, left ankle and foot; X58.XXXA Exposure to other specified factors, initial encounter | CPT/HCPCS: 73630 ==

== ENCOUNTER → 2025-01-27 08:05 | Outpatient (BNVA) | payer MEDICAID, SELFPAY | PROVIDERS: PCP Family Medicine; Visit Provider Podiatrist Foot & Ankle Surgery | DX: S99.192A Other physeal fracture of left metatarsal, initial encounter for closed fracture (principal); S92.502A Displaced unspecified fracture of left lesser toe(s), initial encounter for closed fracture; S92.355A Nondisplaced fracture of fifth metatarsal bone, left foot, initial encounter for closed fracture; M19.172 Post-traumatic osteoarthritis, left ankle and foot; X58.XXXA Exposure to other specified factors, initial encounter | CPT/HCPCS: 73630 ==